=== PATIENT | female | born 1980 | race Caucasian/White ===

== ENCOUNTER 2019-04-07 10:56 | Emergency (ER) | payer MEDICAID, OTHER, SELFPAY ==
[~2019-04-07] VITALS: Ht 157.5 cm; Wt 68.0 kg
[2019-04-07] MEDS ORDERED: GABAPENTIN (11:07)
[2019-04-07] MEDS ORDERED: TRILEPTAL (11:07)
[2019-04-07] MEDS ORDERED: LAMICTAL (11:07)
--- NOTE | 2019-04-07 11:08 | NUR ---
AT BEDSIDE TO ASSESS PT.
--- NOTE | 2019-04-07 11:08 | NUR ---
THIS IS A 39YO F BIB EMS, PER EMS AND FAMILY REPORT PT HAD SZ WHILE MAKING BREAKFAST. PT REMEMBERS COOKING BUT DOES NOT REMEMBER COLLAPSING. NEXT THING PT REMEMBERS IS AMBULANCE. PT DENIES SZ HX. PT IS A/O X'S 4 AT THIS TIME. CONNECTED TO ALL MONITORING. FAMILY AT BEDSIDE CALL LIGHT WITHIN REACH.
[2019-04-07] MEDS ORDERED: LIDOCAINE 1%-EPI 1:100K, 20ML ONE (11:21)
[2019-04-07] MEDS ORDERED: LIDOCAINE 1%-EPI 1:100K, 20ML INFIL ONE (11:30)
[2019-04-07] MEDS ORDERED: SODIUM CHLORIDE 0.9% 1,000ML IVBOLUS ONE (11:30)
[2019-04-07] MEDS ORDERED: DIPH,PERTUSS(ACELL),TET VAC/PF 0.5 ML IM-VACC ONE ×2 (11:30→12:22)
[2019-04-07 11:34] LABS: BASOPHILS # (AUTO) 0.06 x10^3/uL (0-0.1); BASOPHILS % (AUTO) 1 % (0-1); EOSINOPHILS # (AUTO) 0.06 x10^3/uL (0-0.4); EOSINOPHILS % (AUTO) 1 % (1-7); LYMPHOCYTES # (AUTO) 0.83 x10^3/uL (1-3.4); LYMPHOCYTES % (AUTO) 12 % (22-44); MD NO; MEAN CORPUSCULAR HEMOGLOBIN 32.6 pg (27.0-34.8); MEAN CORPUSCULAR HGB CONC 33.9 g/dL (32.4-35.8); MEAN CORPUSCULAR VOLUME 96.1 fL (80-100); MEAN PLATELET VOLUME 7.3 fL (7.4-10.4); MONOCYTES # (AUTO) 0.33 x10^3/uL (0.2-0.8); MONOCYTES % (AUTO) 5 % (2-9); NEUTROPHILS # (AUTO) 5.47 x10^3/uL (1.8-6.8); NEUTROPHILS % (AUTO) 81 % (42-75); PLATELET COUNT 199 x10^3/uL (130-400); RED BLOOD COUNT 4.25 x10^6/uL (3.82-5.3); RED CELL DISTRIBUTION WIDTH 14.9 % (9.6-15.2)
[2019-04-07 11:46] LABS: ALANINE AMINOTRANSFERASE 27 U/L (12-78); ALBUMIN 3.3 g/dL (3.4-5.0); ANION GAP 10 mmol/L (5-15); CALCIUM 8.2 mg/dL (8.5-10.1); CHLORIDE 105 mmol/L (98-107); CREATININE 0.89 mg/dL (0.55-1.02)
[2019-04-07 11:50] LABS: ALKALINE PHOSPHATASE 69 U/L (45-117); BILIRUBIN,TOTAL 0.8 mg/dL (0.2-1.0); TOTAL PROTEIN 7.6 g/dL (6.4-8.2)
--- NOTE | 2019-04-07 11:54 | NUR ---
F/U CALL PLACED TO RAD R/T DELAY STATES TECH WILL BE BACK TO GET IMAGE. F/U CALL TO CONTACT ASSEMBLER STATES PT IS 2ND ON LIST FOR IMAGING AT THIS TIME.
[2019-04-07 11:57] VITALS: BP 134/83
--- NOTE | 2019-04-07 12:09 | NUR ---
PA AT BEDSIDE FOR SUTURES
--- NOTE | 2019-04-07 12:15 | NUR ---
PT TO CT AT THIS TIME, SUTURES COMPLETE. AWAITING CHEST XRAY AND RESULTS AT THIS TIME
--- NOTE | 2019-04-07 12:36 | NUR ---
PT RESTING ON FAMILY ASHLEIGH AT BEDSIDE.
--- NOTE | 2019-04-07 12:43 | NUR ---
ALL RESULTS BACK AT THIS TIME. CHART UP FOR RECHECK
== END 2019-04-07 13:31 | disposition home or self-care (01) ==
LOC: ED 11:54
DX: S01.81XA Laceration without foreign body of other part of head, initial encounter (principal); R55 Syncope and collapse; R56.9 Unspecified convulsions; X58.XXXA Exposure to other specified factors, initial encounter; Y93.89 Activity, other specified; Y92.89 Other specified places as the place of occurrence of the external cause; Y99.8 Other external cause status
CPT/HCPCS: 12011; 36415; 70450; 71045; 80053; 84443; 84703; 85025; 90471; 90715; 93005; 96360; 99284; J7030

== ENCOUNTER 2019-05-28 14:12 | Inpatient (IN) | payer MEDICAID ==
[~2019-05-28] VITALS: Ht 157.5 cm; Wt 61.0 kg
[~2019-05-28 14:12] MED LIST: GABAPENTIN; LAMICTAL PO; TRILEPTAL
--- NOTE | 2019-05-28 14:32 | NUR ---
[facility] home. unwitnesed seizure 1200. family noted bruising/trauma to face. refused transport. at 1330 family heard thump in other room, witnessed 15 seconds of tonic clonic seizure. fsbs 126. bit tongue. pt denies neck/back pain. smells of etoh. denies drinking. gait steady. speaking in full sentences. c collar applied. tachy 130s on monitor. hypertensive. family at bedside. Dr. Le in room to eval pt. plan for CT/labs/iv. plan for admit overnight.
[2019-05-28] MEDS ORDERED: LORazepam 2 MG/ML, 1ML ONE (14:46)
[2019-05-28] MEDS ORDERED: LORazepam 2 MG/ML, 1ML IVPush PRN (15:00)
[2019-05-28] MEDS ORDERED: SODIUM CHLORIDE FLUSH 10ML SYR IVF ONE (15:00)
[2019-05-28] MEDS ORDERED: MAGNESIUM SULFATE 1 GM, THIAMINE 100 MG, FOLIC ACID 1 MG, MVI ADULT 10 ML in SODIUM CHL... IV ONE (15:00)
--- NOTE | 2019-05-28 15:13 | NUR ---
PATIENT TAKEN TO IMAGING WITH TECH. PATIENT OUT OF ROOM
[2019-05-28 15:20] LABS: MICROSCOPIC INDICATED
[2019-05-28 15:31] LABS: BASOPHILS # (AUTO) 0.06 x10^3/uL (0-0.1); BASOPHILS % (AUTO) 1 % (0-1); EOSINOPHILS # (AUTO) 0.16 x10^3/uL (0-0.4); EOSINOPHILS % (AUTO) 2 % (1-7); LYMPHOCYTES # (AUTO) 0.74 x10^3/uL (1-3.4); LYMPHOCYTES % (AUTO) 8 % (22-44); MD NO; MEAN CORPUSCULAR HEMOGLOBIN 33.1 pg (27.0-34.8); MEAN CORPUSCULAR HGB CONC 33.3 g/dL (32.4-35.8); MEAN CORPUSCULAR VOLUME 99.3 fL (80-100); MEAN PLATELET VOLUME 7.6 fL (7.4-10.4); MONOCYTES # (AUTO) 0.38 x10^3/uL (0.2-0.8); MONOCYTES % (AUTO) 4 % (2-9); NEUTROPHILS # (AUTO) 7.76 x10^3/uL (1.8-6.8); NEUTROPHILS % (AUTO) 85 % (42-75); PLATELET COUNT 195 x10^3/uL (130-400); RED BLOOD COUNT 4.49 x10^6/uL (3.82-5.3); RED CELL DISTRIBUTION WIDTH 16.3 % (9.6-15.2)
[2019-05-28 15:36] LABS: INTERNATIONAL NORMALIZED RATIO 0.9 (0.93-1.1); PROTHROMBIN TIME 9.5 Seconds (9.6-11.5)
[2019-05-28 15:37] LABS: CULTURE INDICATED? YES
[2019-05-28] MEDS ORDERED: METO-95 PO (15:51)
[2019-05-28] MEDS ORDERED: GABA300C10 PO (15:51)
--- NOTE | 2019-05-28 15:51 | NUR ---
scans clear. cmp redrawn and sent. banana bag infusing. pt drowsing, wakes to painful stimulus, PEARRL. mother at bedside. call rasmussen in reach.
[2019-05-28 16:01] LABS: AMPHETAMINE SCREEN, URINE Positive (Negative); BARBITURATE SCREEN, URINE Negative (Negative); BENZODIAZEPINE SCREEN, URINE Negative (Negative); CANNABINOID SCREEN, URINE Negative (Negative); COCAINE SCREEN, URINE Negative (Negative); METHADONE SCREEN, URINE Negative (Negative); OPIATE SCREEN, URINE Negative (Negative)
[2019-05-28 16:18] LABS: ALANINE AMINOTRANSFERASE 26 U/L (12-78); ALBUMIN 2.9 g/dL (3.4-5.0); ANION GAP 10 mmol/L (5-15); CALCIUM 7.8 mg/dL (8.5-10.1); CHLORIDE 109 mmol/L (98-107); CREATININE 0.67 mg/dL (0.55-1.02)
[2019-05-28 16:23] LABS: ALKALINE PHOSPHATASE 72 U/L (45-117); BILIRUBIN,TOTAL 0.5 mg/dL (0.2-1.0); TOTAL PROTEIN 6.8 g/dL (6.4-8.2)
[2019-05-28] MEDS ORDERED: CEFTRIAXONE PMX 1GM/50ML 50 ML IV ONE (16:30)
--- NOTE | 2019-05-28 16:33 | NUR ---
bp addressed w/ Dr. Le. no new orders, continue to tx w/ ativan prn. pt GCS 13, arousable to verbal stimuli, ST on monitor 110s. awaiting bed. ceftriaxone for UTI. ceftriaxone not compatible w/ banana bag per pharm, plan for second IV.
[2019-05-28] MEDS ORDERED: POTASSIUM CHLORIDE 40 MEQ in SODIUM CHLORIDE 0.9% 1,000 ML IV SCH (17:00)
[2019-05-28] MEDS ORDERED: MAGNESIUM SULFATE PMX 2GM/50ML 50 ML IV ONE (17:00)
[2019-05-28] MEDS ORDERED: ACETAMINOPHEN 325 MG TABLET PO PRN (17:00)
[2019-05-28] MEDS ORDERED: LORazepam 1MG TABLET PO PRN ×2 (17:00)
[2019-05-28] MEDS ORDERED: LORazepam 0.5MG TABLET PO PRN (17:00)
[2019-05-28] MEDS ORDERED: LORazepam 2 MG/ML, 1ML IV PRN ×3 (17:00)
[2019-05-28 17:24] VITALS: BP 134/89
[2019-05-28 21:15] VITALS: BP 140/82
[2019-05-29 02:15] VITALS: BP 133/84
[2019-05-29] MEDS ORDERED: POTASSIUM CHLORIDE 20 MEQ, MAGNESIUM SULFATE 1 GM, FOLIC ACID 1 MG, THIAMINE 200 MG, MV... IV SCH (05:00)
[2019-05-29 06:01] LABS: BASOPHILS # (AUTO) 0.05 x10^3/uL (0-0.1); BASOPHILS % (AUTO) 1 % (0-1); EOSINOPHILS # (AUTO) 0.14 x10^3/uL (0-0.4); EOSINOPHILS % (AUTO) 3 % (1-7); LYMPHOCYTES # (AUTO) 1.28 x10^3/uL (1-3.4); LYMPHOCYTES % (AUTO) 24 % (22-44); MD NO; MEAN CORPUSCULAR HEMOGLOBIN 33.1 pg (27.0-34.8); MEAN CORPUSCULAR HGB CONC 33.1 g/dL (32.4-35.8); MEAN CORPUSCULAR VOLUME 100.2 fL (80-100); MEAN PLATELET VOLUME 7.7 fL (7.4-10.4); MONOCYTES # (AUTO) 0.28 x10^3/uL (0.2-0.8); MONOCYTES % (AUTO) 5 % (2-9); NEUTROPHILS # (AUTO) 3.69 x10^3/uL (1.8-6.8); NEUTROPHILS % (AUTO) 68 % (42-75); PLATELET COUNT 164 x10^3/uL (130-400); RED BLOOD COUNT 3.78 x10^6/uL (3.82-5.3); RED CELL DISTRIBUTION WIDTH 16.1 % (9.6-15.2)
[2019-05-29 06:15] LABS: CHLORIDE 115 mmol/L (98-107)
[2019-05-29 06:39] LABS: ALANINE AMINOTRANSFERASE 23 U/L (12-78); ALBUMIN 2.7 g/dL (3.4-5.0); ALKALINE PHOSPHATASE 66 U/L (45-117); ANION GAP 8 mmol/L (5-15); BILIRUBIN,TOTAL 0.7 mg/dL (0.2-1.0); CALCIUM 7.3 mg/dL (8.5-10.1); CHOL/HDL RATIO 2.5; CHOLESTEROL, TOTAL 179 mg/dL (140-239); CREATININE 0.65 mg/dL (0.55-1.02); HDL CHOL % 40 % (28-40); HDL CHOLESTEROL (DIRECT) 71 mg/dL (40-60); LDL CHOLESTEROL,CALCULATED 74 mg/dL (54-169); TOTAL PROTEIN 6.2 g/dL (6.4-8.2); TRIGLYCERIDES 168 mg/dL (50-200); VLDL CHOLESTEROL 34 mg/dL (0-25)
[2019-05-29 06:49] VITALS: BP 130/87
[2019-05-29] MEDS ORDERED: POTASSIUM CHLORIDE 20 MEQ TAB.ER.PRT PO ONE (08:00)
[2019-05-29] MEDS ORDERED: ACETAMINOPHEN 325 MG TABLET PO PRN (08:00)
[2019-05-29] MEDS: ENOXAPARIN 40 MG/0.4 ML SQ SCH (10:01)
[2019-05-29] MEDS: METOPROLOL SUCCINATE 100 MG TAB.ER.24H PO SCH (10:01)
[2019-05-29] MEDS: THIAMINE 100MG TABLET PO SCH (10:01)
[2019-05-29] MEDS ORDERED: GABAPENTIN 300 MG CAPSULE PO PRN (11:30)
[2019-05-29 13:28] VITALS: BP 112/75
[2019-05-29] MEDS: POTASSIUM CHLORIDE 40 MEQ in SODIUM CHLORIDE 0.9% 1,000 ML IV SCH (17:56)
[2019-05-29 19:20] VITALS: BP 118/83
[2019-05-29] MEDS: LAMOTRIGINE 100 MG TABLET PO SCH (20:45)
[2019-05-30 04:59] VITALS: BP 135/90
[2019-05-30 06:09] LABS: BASOPHILS # (AUTO) 0.06 x10^3/uL (0-0.1); BASOPHILS % (AUTO) 1 % (0-1); EOSINOPHILS # (AUTO) 0.17 x10^3/uL (0-0.4); EOSINOPHILS % (AUTO) 3 % (1-7); LYMPHOCYTES # (AUTO) 1.45 x10^3/uL (1-3.4); LYMPHOCYTES % (AUTO) 26 % (22-44); MD NO; MEAN CORPUSCULAR HEMOGLOBIN 33.5 pg (27.0-34.8); MEAN CORPUSCULAR VOLUME 101.5 fL (80-100); MEAN PLATELET VOLUME 7.7 fL (7.4-10.4); MONOCYTES # (AUTO) 0.27 x10^3/uL (0.2-0.8); MONOCYTES % (AUTO) 5 % (2-9); NEUTROPHILS # (AUTO) 3.64 x10^3/uL (1.8-6.8); NEUTROPHILS % (AUTO) 65 % (42-75); PLATELET COUNT 163 x10^3/uL (130-400); RED BLOOD COUNT 3.56 x10^6/uL (3.82-5.3); RED CELL DISTRIBUTION WIDTH 16.2 % (9.6-15.2)
[2019-05-30 06:21] LABS: ANION GAP 8 mmol/L (5-15); CALCIUM 7.6 mg/dL (8.5-10.1); CHLORIDE 114 mmol/L (98-107)
[2019-05-30 08:14] VITALS: BP 114/77
[2019-05-30] MEDS: METOPROLOL SUCCINATE 100 MG TAB.ER.24H PO SCH (09:44)
[2019-05-30] MEDS: THIAMINE 100MG TABLET PO SCH (09:45)
[2019-05-30] MEDS: ENOXAPARIN 40 MG/0.4 ML SQ SCH (09:45)
[2019-05-30] MEDS: LAMOTRIGINE 100 MG TABLET PO SCH (09:45)
[2019-05-30 13:11] VITALS: BP 119/82
[2019-05-30] MEDS: POTASSIUM CHLORIDE 40 MEQ in SODIUM CHLORIDE 0.9% 1,000 ML IV SCH (17:13)
[2019-05-30 19:30] VITALS: BP 139/94
[2019-05-31 02:06] VITALS: BP 138/89
[2019-05-31] MEDS ORDERED: LAMOTRIGINE 100 MG TABLET PO SCH (09:00)
[2019-05-31] MEDS: ENOXAPARIN 40 MG/0.4 ML SQ SCH (09:43)
[2019-05-31] MEDS: THIAMINE 100MG TABLET PO SCH (09:43)
[2019-05-31] MEDS ORDERED: LAMICTAL PO (09:58)
[2019-05-31 10:09] VITALS: BP 135/87
[2019-05-31] MEDS: POTASSIUM CHLORIDE 40 MEQ in SODIUM CHLORIDE 0.9% 1,000 ML IV SCH (10:17)
[2019-05-31 14:13] VITALS: BP 148/98
== END 2019-05-31 16:48 | disposition home or self-care (01) | DRG 101 ==
LOC: ED 14:46 → EDIP 16:29 → 4EST 17:13 → DCLOUNGE 05-31 16:30
PROVIDERS: ADMIT Internal Medicine; ATTEND Internal Medicine
DX: R56.9 Unspecified convulsions (principal); F10.239 Alcohol dependence with withdrawal, unspecified; N39.0 Urinary tract infection, site not specified; I47.1 Supraventricular tachycardia; E83.42 Hypomagnesemia; E87.6 Hypokalemia; F15.90 Other stimulant use, unspecified, uncomplicated; F17.200 Nicotine dependence, unspecified, uncomplicated; F31.9 Bipolar disorder, unspecified; G47.00 Insomnia, unspecified; I10 Essential (primary) hypertension; S00.12XA Contusion of left eyelid and periocular area, initial encounter; S00.83XA Contusion of other part of head, initial encounter; Z91.19 Patient's noncompliance with other medical treatment and regimen; X58.XXXA Exposure to other specified factors, initial encounter; Y93.89 Activity, other specified; Y92.89 Other specified places as the place of occurrence of the external cause; Y99.8 Other external cause status
CPT/HCPCS: 36415; 70450; 70486; 72125; 80048; 80053; 80061; 80307; 81001; 83605; 83735; 84100; 84443; 84703; 85025; 85610; 87086; 93005; 95819; 99285; G0378; J1650; J3411; J3475; J3480; J2060; J7030

== ENCOUNTER 2019-08-17 16:54 | Emergency (ER) | payer MEDICAID ==
[~2019-08-17] VITALS: Ht 157.5 cm; Wt 72.6 kg
[~2019-08-17 16:54] MED LIST changes: +GABA300C10 PO; +METO-95 PO
--- NOTE | 2019-08-17 18:03 | NUR ---
[facility]
--- NOTE | 2019-08-17 18:08 | NUR ---
THIS IS A 39 YO F W/ C/O RT SIDED PAIN. PT LEFT AMA FROM [facility] TODAY. PT REPORTS SHE WAS ADMITTED FOR KIDNEY INFT. PT REPORTS SHE WAS TOLD SHE WAS GOING TO AND THAT SHE IS SEPTIC. PT STATES THAT SHE LEFT [facility] BECAUSE ED DOC TOLD HER SHE'D STAY ONE NIGHT AND SHE HAD ALREADY STAYED 4 NIGHTS. RESP EVEN AND UNLABORED. NADN. PT IS RESTING ON [employer] W/ CALL LIGHT IN REACH.
[2019-08-17 18:34] LABS: BASOPHILS # (AUTO) 0.03 x10^3/uL (0-0.1); BASOPHILS % (AUTO) 1 % (0-1); EOSINOPHILS # (AUTO) 0.07 x10^3/uL (0-0.4); EOSINOPHILS % (AUTO) 2 % (1-7); LYMPHOCYTES # (AUTO) 1.06 x10^3/uL (1-3.4); LYMPHOCYTES % (AUTO) 22 % (22-44); MD NO; MEAN CORPUSCULAR HEMOGLOBIN 31.8 pg (27.0-34.8); MEAN CORPUSCULAR HGB CONC 33.1 g/dL (32.4-35.8); MEAN CORPUSCULAR VOLUME 96.1 fL (80-100); MONOCYTES # (AUTO) 0.72 x10^3/uL (0.2-0.8); MONOCYTES % (AUTO) 15 % (2-9); NEUTROPHILS # (AUTO) 2.84 x10^3/uL (1.8-6.8); NEUTROPHILS % (AUTO) 60 % (42-75); PLATELET COUNT 159 x10^3/uL (130-400); RED BLOOD COUNT 3.23 x10^6/uL (3.82-5.3); RED CELL DISTRIBUTION WIDTH 16.2 % (9.6-15.2)
[2019-08-17 18:46] LABS: ALBUMIN 2.1 g/dL (3.4-5.0); ANION GAP 5 mmol/L (5-15); CALCIUM 7.9 mg/dL (8.5-10.1); CHLORIDE 114 mmol/L (98-107); CREATININE 0.79 mg/dL (0.55-1.02)
[2019-08-17] MEDS ORDERED: MORPHINE SULFATE 4 MG/ML, 1ML IVPush PRN (19:30)
[2019-08-17] MEDS ORDERED: ONDANSETRON 2MG/ML, 2ML IVPush ONE (19:30)
[2019-08-17] MEDS ORDERED: ONDANSETRON 2MG/ML, 2ML ONE (19:35)
[2019-08-17] MEDS ORDERED: MORPHINE SULFATE 4 MG/ML, 1ML ONE (19:35)
[2019-08-17 19:52] LABS: CULTURE INDICATED? YES; MICROSCOPIC INDICATED
--- NOTE | 2019-08-17 20:49 | NUR ---
PT RESTING ON [employer] W/ CALL LIGHT IN REACH. AWAITING TEST RESULTS. REPORTS RELIEF OF PAIN AFTER MEDS.
--- NOTE | 2019-08-17 21:29 | NUR ---
ALL TESTS RESULTED PT IS UP FOR RECHECK AT THIS TIME.
[2019-08-17 22:08] VITALS: BP 94/70
--- NOTE | 2019-08-17 23:31 | NUR ---
TASK RN: Patient/Caregiver given discharge instructions and they have confirmed that they understand the instructions. Patient ambulatory with steady gait piv dc prior to pt leaving facility.
== END 2019-08-17 23:32 | disposition home or self-care (01) ==
LOC: ED 18:58
DX: N10 Acute pyelonephritis (principal); D64.9 Anemia, unspecified; I10 Essential (primary) hypertension
CPT/HCPCS: 36415; 71045; 76775; 80048; 81001; 82040; 84703; 85025; 87086; 93005; 96374; 96375; 99285; J2270; J2405